=== PATIENT | female | born 1995 | race Caucasian/White ===

== ENCOUNTER 2020-04-23 05:20 | Emergency (ER) | payer BC, OTHER ==
[~2020-04-23] VITALS: Ht 165.1 cm; Wt 97.7 kg
[2020-04-23] MEDS ORDERED: IV RINGERS SOLUTION,LACTATED 1,000 ML IV SCH (05:39)
[2020-04-23] MEDS ORDERED: ONDANSETRON PF 4 MG/2 ML VIAL. IVP ONE (05:45)
--- NOTE | 2020-04-23 05:59 | PHYS DOC ---
Past History Past Medical History: No Pertinent History Past Medical History G2, 1 Miscarry- abnormal fetus (MYRON BOWENS MD) Past Surgical History: Other Additional Past Surgical Histo: D&C, KNEE SX (MYRON BOWENS MD) Alcohol Use: None Drug Use: None (MYRON BOWENS MD) General Adult EDM: Chief Complaint: ABDOMINAL PAIN IN HPI: HPI: ".. I am about 7 weeks .... I seen my OB yesterday... they did an US.. but did not see anything yet... but I am having increased spotting and pain... " "My last was a spontaneous the fetus was abnormal... 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 Pt. follow s with taker off Dr. Cueto at [facility]. Pt, is O +, and had a HGB of 13.0 yesterday. Beta-hCG was 7086. US reportedly fetus was not identified on ultrasound. Patient had only one lifetime sex partner. No history of STDs. Patient is taking vitamins. Patient denies any intake of bad food. No history of trauma. No history of recent travel outside of the [place] area. No history immune suppression. No specific ill contacts but does work as a physical therapist with hospital patients. (MYRON BOWENS MD) Review of Systems: Review of Systems: Constitutional: Denies fever or chills Eyes: Denies change in visual acuity HENT: Denies nasal congestion or sore throat Respiratory: Denies cough or shortness of breath Cardiovascular: Denies chest pain or edema GI: Complaints of abdominal pain, nausea,cramping and vaginal spotting. Pt. denies vomiting, bloody stools or diarrhea : Denies dysuria Musculoskeletal: Denies back pain or joint pain Integument: Denies rash Neurologic: Denies headache, focal weakness or sensory changes Endocrine: Denies polyuria or polydipsia Lymphatic: Denies swollen glands Psychiatric: Denies depression or anxiety (MYRON BOWENS MD) Heart Score: Risk Factors: Risk Factors: DM, Current or recent (<one month) smoker, HTN, HLP, family history of CAD, obesity. Risk Scores: Score 0 - 3: 2.5% MACE over next 6 weeks - Discharge Home Score 4 - 6: 20.3% MACE over next 6 weeks - Admit for Clinical Observation Score 7 - 10: 72.7% MACE over next 6 weeks - Early Invasive Strategies (MYRON BOWENS MD) Family History: Family History: Non-Contributory (MYRON BOWENS MD) Current Medications: Current Meds: Current Medications Medications (Trade) Dose Ordered Sig/Juan Start Time Stop Time Status Last Admin Dose Admin Lactated Ringer's 1,000 ml @ 1,000 mls/hr Q1H 04/23/20 05:39 04/23/20 06:38 UNV Ondansetron HCl (Zofran) 4 mg 1X ONCE 04/23/20 05:45 04/23/20 05:46 UNV (MYRON BOWENS MD) Allergies: Allergies: Allergies Coded Allergies Type Severity Reaction Last Updated Verified No Known Drug Allergies 02/26/16 No (MYRON BOWENS MD) Physical Exam: PE: Constitutional: Well developed, well nourished, moderate acute distress, non- toxic appearance. [] HENT: Normocephalic, atraumatic, bilateral external ears normal, oropharynx moist, no oral exudates, nose normal. [] Eyes: PERRLA, EOMI, conjunctiva normal, no discharge. [] Neck: Normal range of motion, no tenderness, supple, no stridor. [] Cardiovascular:Heart rate regular rhythm, no murmur [] Lungs & Thorax: Bilateral breath sounds clear to auscultation [] Abdomen: Bowel sounds normal, soft, Rt. mid abdomen tenderness, no masses, no pulsatile masses. Cervical office closed. No active bleeding. Rt. adnexal tenderness. The rectal nontender. Mild rebound to right mid abdomen. Skin: Warm, dry, no erythema, no rash. [] Back: No tenderness, no CVA tenderness. [] Extremities: No tenderness, no cyanosis, no clubbing, ROM intact, no edema. [] No psoas sign. Neurologic: Alert and oriented X 3, normal motor function, normal sensory function, no focal deficits noted. [] Psychologic: Affect anxious, judgement normal, mood normal. [] (MYRON BOWENS MD) Current Patient Data: Labs: Laboratory Tests Test 04/23/20 05:43 POC Urine HCG, Qualitative hcg positive (Negative) Vital Signs: Vital Signs Date Time Temp Pulse Resp B/P (MAP) Pulse Ox O2 Delivery O2 Flow Rate FiO2 04/23/20 05:42 98.4 102 20 133/48 (76) 99 Room Air (MYRON BOWENS MD) EKG: EKG: [] (MYRON BOWENS MD) Radiology/Procedures: Radiology/Procedures: US pending at shift change.[] (MYRON BOWENS MD) Radiology/Procedures: REASON: pain Rt. upper quadrant, reportedly 7 weeks gravid, prior US ne PROCEDURE: OB <14 WKS CLINICAL HISTORY: Reason: pain Rt. upper quadrant, reportedly 7 weeks gravid COMPARISON: None available. TECHNIQUE: transabdominal and endovaginal sonography was performed FINDINGS: The uterus measures 9.4 x 5.9 x 4.7 cm with small volume fluid in the endometrium. No discrete intrauterine gestational sac is identified. Right ovary measures approximately 3.4 x 2.2 x 2.1 cm. In the right adnexa, a structure measuring 3.7 x 3.4 x 1.7 cm contains a gestational sac, yolk sac and pole, heart rate measures 137 bpm. [place]-rump length measures 0.65 cm with an estimated gestational age of 6 weeks 3 days. Complex left adnexal cystic structure measures 3 x 2.5 x 3.7. Left ovary measures 4.2 x 2.9 x 2.9 cm. Small volume free pelvic fluid is seen. IMPRESSION: 1. Ectopic gestation in the right adnexa is seen with gestational sac, yolk sac and pole with heart rate of 137 bpm is identified. 2. Left adnexal cystic structure, nonspecific possibly corpus luteum cyst. 3. Small volume free pelvic fluid, simple appearing (DANIEL CALDERON DO) Course & Med Decision Making: Course & Med Decision Making Pertinent Labs and Imaging studies reviewed. (See chart for details) Pt. endorse to Dr. Simmons at shift change. He will make disposition of pt. Impression: 1. Abdomen Pain 2. Est. 7 weeks Gravid- No IUP identified reportedly on 04/22 US ( Concern for Ectopic) [] (MYRON BOWENS MD) Course & Med Decision Making ED course: Evaluation reveals a 24-year-old female presents with spotting and abdominal discomfort and . Ultrasound was performed today which showed a live right adnexal ectopic . I did discuss this with the patient and reassessed her pain level she said she was in no pain currently. I spoke with Dr. Tamayo at [facility] who accepted the patient in transfer to go straight to the OR (DANIEL CALDERON DO) Shayon Disclaimer: Dragon Disclaimer: This electronic medical record was generated, in whole or in part, using a voice recognition dictation system. (MYRON BOWENS MD) Departure Departure: Impression: Primary Impression: Ectopic Qualified Codes: O00.101 - Right tubal without intrauterine Disposition: TRANSFER OTHER (OPR) Condition: STABLE Referrals: PCP,NO (PCP) Justification of Admission: Justification of Admission: Justification of Admission Dx: N/A (MYRON BOWENS MD) Justification of Admission Dx: Yes Comments: Ectopic (DANIEL CALDERON DO) Dragon Disclaimer This chart was dictated in whole or in part using Voice Recognition software in a busy, high-work load, and often noisy Emergency Department environment. It may contain unintended and wholly unrecognized errors or omissions. (MYRON BOWENS MD) MYRON BOWENS MD Apr 23, 2020 05:58 DANIEL CALDERON DO Apr 23, 2020 08:16
[2020-04-23 06:09] VITALS: BP 123/65
[2020-04-23] MEDS ORDERED: IV RINGERS SOLUTION,LACTATED 1,000 ML IV ONE (06:15)
[2020-04-23] MEDS ORDERED: oxyCODONE/APAP 5/325 1 TAB TABLET PO ONE (06:15)
[2020-04-23 06:27] LABS: CLARITY,URINE CLEAR; COLOR,URINE STRAW
[2020-04-23 06:28] LABS: BACTERIA,URINE FEW /HPF (0-FEW); BILIRUBIN,URINE NEG (NEG); GLUCOSE,URINE NEG (NEG); NITRITE,URINE NEG (NEG); RBC,URINE 0 /HPF (0-2); SQUAMOUS EPITHELIAL CELL,UR FEW /LPF; UROBILINOGEN,URINE 0.2 mg/dL (0.2 mg/dL); WBC,URINE OCC /HPF (0-4)
[2020-04-23 06:31] LABS: BARBITURATES NEG (NEG); BENZODIAZEPINES NEG (NEG); CANNABINOIDS NEG (NEG); COCAINE NEG (NEG); METHADONE NEG (NEG); OPIATES NEG (NEG); PHENCYCLIDINE NEG (NEG)
[2020-04-23 06:32] LABS: AMPHETAMINE/METHAMPHETAMINE NEG (NEG)
[2020-04-23 06:38] LABS: BASO % 1 % (0-3); EOS % 0 % (0-3); HEMATOCRIT 39.3 % (36.0-47.0); HEMOGLOBIN 13.2 g/dL (12.0-15.5); LYMPH # 1.9 x10^3/uL (1.0-4.8); LYMPH % 26 % (24-48); MEAN CORPUSCULAR HEMOGLOBIN 32 pg (25-35); MEAN CORPUSCULAR HGB CONC 34 g/dL (31-37); MEAN CORPUSCULAR VOLUME 93 fL (79-100); MONO # 0.5 x10^3/uL (0.0-1.1); MONO % 6 % (0-9); NEUT % 67 % (31-73); PLATELET COUNT 269 x10^3/uL (140-400); RED BLOOD COUNT 4.21 x10^6/uL (3.50-5.40); RED CELL DISTRIBUTION WIDTH 12.8 % (11.5-14.5); WHITE BLOOD COUNT 7.5 x10^3/uL (4.0-11.0)
[2020-04-23 06:40] LABS: CALCIUM 8.8 mg/dL (8.5-10.1); CREATININE 0.7 mg/dL (0.6-1.0); GFR 101.1; POTASSIUM 3.7 mmol/L (3.5-5.1)
[2020-04-23 06:45] LABS: ALBUMIN 3.8 g/dL (3.4-5.0); DIRECT BILIRUBIN 0.1 mg/dL (0.0-0.2); TOTAL BILIRUBIN 0.3 mg/dL (0.2-1.0); TOTAL PROTEIN 7.7 g/dL (6.4-8.2)
--- NOTE | 2020-04-23 07:46 | RAD ---
EXAM: ABDOMINAL ULTRASOUND, limited. HISTORY: Right upper quadrant abdominal pain. 7 weeks gravid reportedly.. COMPARISON: None. FINDINGS: Sonographic evaluation of the right upper quadrant abdomen was performed. The liver appears normal in parenchymal echotexture. There are no focal lesions. The gallbladder is unremarkable without evidence of stones, wall thickening or pericholecystic fluid. There is no sonographic Benson sign. The common duct measures 4 mm. The visualized portions of the pancreas reveal no abnormality. The right kidney measures 10.5 x 5.4 x 4.5 cm. Cortical thickness and echogenicity are preserved. There is no hydronephrosis The visualized portions of the abdominal aorta and inferior vena cava are grossly patent and normal in caliber. IMPRESSION: 1. Unremarkable examination of the right upper quadrant abdomen. Electronically signed by: Rafita Wahl MD (04/23/2020 7:43 AM) [id number]
--- NOTE | 2020-04-23 08:01 | RAD ---
CLINICAL HISTORY: Reason: pain Rt. upper quadrant, reportedly 7 weeks gravid COMPARISON: None available. TECHNIQUE: transabdominal and endovaginal sonography was performed FINDINGS: The uterus measures 9.4 x 5.9 x 4.7 cm with small volume fluid in the endometrium. No discrete intrauterine gestational sac is identified. Right ovary measures approximately 3.4 x 2.2 x 2.1 cm. In the right adnexa, a structure measuring 3.7 x 3.4 x 1.7 cm contains a gestational sac, yolk sac and pole, heart rate measures 137 bpm. [place]-rump length measures 0.65 cm with an estimated gestational age of 6 weeks 3 days. Complex left adnexal cystic structure measures 3 x 2.5 x 3.7. Left ovary measures 4.2 x 2.9 x 2.9 cm. Small volume free pelvic fluid is seen. IMPRESSION: 1. Ectopic gestation in the right adnexa is seen with gestational sac, yolk sac and pole with heart rate of 137 bpm is identified. 2. Left adnexal cystic structure, nonspecific possibly corpus luteum cyst. 3. Small volume free pelvic fluid, simple appearing Findings discussed with Dr. Simmons at 04/23/2020 7:58 AM. FOR INTERNAL CODING PURPOSES RESULT CODE: (C) Electronically signed by: Raymundo Ramos MD (04/23/2020 7:58 AM) [id number]
== END 2020-04-23 08:40 | disposition short-term general hospital (02) ==
LOC: ER 05:20
DX: O00.90 Unspecified ectopic pregnancy without intrauterine pregnancy (principal); Z3A.01 Less than 8 weeks gestation of pregnancy
CPT/HCPCS: 36415; 76705; 76801; 80048; 80076; 80307; 81001; 81025; 82150; 82550; 83690; 83735; 84702; 85025; 85610; 85730; 96374; 99285; J2405; J7120